=== PATIENT | female | born 1995 | race Caucasian/White ===

== ENCOUNTER 2024-04-13 14:04 | Emergency (ER) | payer BC, SELFPAY ==
--- NOTE | ~2024-04-13 | XR_ITS ---
EXAMINATION: XR FOOT 3 OR MORE VIEWS RIGHT, XR ANKLE 3 OR MORE VIEWS RIGHT HISTORY: fall COMPARISON: There are no prior studies available for comparison. FINDINGS: Six views of the right foot and ankle are submitted. Osseous mineralization is normal. There is a mildly displaced oblique fracture of the distal fibula. No additional fracture is seen. There is no dislocation. The joint spaces are preserved. There is soft tissue swelling over the lateral malleolus. XR/XR foot RT min 3V IMPRESSION: Mildly displaced oblique fracture of the distal fibula. Electronically signed by: Mehul Fernandez MD 04/13/2024 03:58 PM [facility]
--- NOTE | ~2024-04-13 | XR_ITS ---
EXAMINATION: XR FOOT 3 OR MORE VIEWS RIGHT, XR ANKLE 3 OR MORE VIEWS RIGHT HISTORY: fall COMPARISON: There are no prior studies available for comparison. FINDINGS: Six views of the right foot and ankle are submitted. Osseous mineralization is normal. There is a mildly displaced oblique fracture of the distal fibula. No additional fracture is seen. There is no dislocation. The joint spaces are preserved. There is soft tissue swelling over the lateral malleolus. XR/XR ankle RT min 3V IMPRESSION: Mildly displaced oblique fracture of the distal fibula. Electronically signed by: Mehul Fernandez MD 04/13/2024 03:58 PM [facility]
[2024-04-13 14:11] VITALS: BP 155/91; BP 156/90; PULSE 108; PULSE 115; RESP 18; TEMP 36.8; O2SAT 100; O2SAT 98; BMI 40.7
--- NOTE | 2024-04-13 14:34 | ED.GENADULT ---
HPI - General Adult General Chief complaint: Extremity Injury, Lower Stated complaint: FALL,R ANKLE PAIN/SWELLING PER EMS Time Seen by Provider: 04/13/24 16:31 Source: patient and EMS Mode of arrival: EMS Limitations: no limitations History of Present Illness ED Provider: Melida Salcedo NP HPI narrative: Patient is a 28-year-old female who presents emergency department via EMS for evaluation. She reports a mechanical trip and fall resulting in a twisting injury to the right ankle. She denies any preceding symptoms prior to the fall. There was no head strike or loss of consciousness. She denies use of anticoagulants or known coagulation disorders. She was swelling deformity to her right ankle endorsing pain diffusely throughout but primarily along the lateral malleolus Related Data Allergies Allergy/AdvReac Type Severity Reaction Status Date / Time Cephalosporins Allergy Rash Verified 04/13/24 14:16 Review of Systems Review of Systems: Yes all other systems are reviewed and are negative PMFSH Past Medical History Attestation statement: The following information was validated with the patient. Social History Social History Advance Directives: No Advance Directives Information Provided: No Do you have a plan to hurt others: No Plan Physical Exam ED Vital Signs: Vital Signs - 24 hr 04/13/24 14:11 04/13/24 18:45 Temperature 98.2 F 98.1 F Pulse Rate 115 H 105 H Respiratory Rate 18 16 Blood Pressure 155/91 H 135/79 Pulse Oximetry 100 100 Oxygen Delivery Method Room Air Room Air BMI result Body Mass Index 40.7 Appearance: Alert.?Oriented to person, place and time. No acute distress.?Normal affect. Neck: Normal inspection.? Neck supple.?? CVS: Heart sounds normal. Normal heart rate and rhythm.? Pulses normal.?? Respiratory: No respiratory distress.? Lung sounds clear to auscultation bilaterally?? Skin: Skin warm and dry.? Normal skin color.? Extremities: Swelling and slight deformity to the right ankle. 2+ DP/PT pulse bilaterally. Pain primarily to the lateral malleolus. No pain upon palpation of the proximal tibia or fibula. Moving the digits of the foot without complication Neuro: Moves all extremities spontaneously. Sensation intact bilaterally. No focal neuro deficits. Course Course Course Narrative: RME; 28 yold female presents to the ED for right ankle pain. Patient tripped and fell unto ankle. xray ordered. Vascular neuro exam intact. Motor exam limited due to pain Procedures Orthopedic Splinting/Casting Injury #1: Side: right Lower Extremity Injury Location: ankle Lower Extremity Immobilizer: stirrup splint Other Orthopedic Equipment: crutches Medical Decision Making Medical Decision Making MDM Narrative: Patient is a 28-year-old female who presents emergency department for evaluation after mechanical trip and fall with resultant pain and injury to the right ankle. Pain is 4/10. Declines interest in acetaminophen or ibuprofen at this time. Exam most concerning for likely fracture, is neurovascularly intact distally. XR was obtained revealing a distal fibular fracture. She was placed in a stirrup splint and remained neurovascularly intact distally after application. She was provided with crutches and instructed on appropriate usage. She had no associated head injury with this, no high-risk factors for shearing injury to suggest ICH that would warrant CT of the head. Discussed treatment including rest, ice, elevation, acetaminophen/ibuprofen, outpatient follow-up with orthopedics. All questions answered. Differential Diagnosis Differential Diagnoses: The differential diagnosis associated with the presentation includes (See narrative above) Independent Interpretation I performed an independent interpretation of an: Plain X-Ray (Distal fibular fracture) Radiology Impression Discussion of test interpretation with radiology: I have reviewed the radiologist's reading. Radiologist Impression: XR/XR ankle RT min 3V IMPRESSION: Mildly displaced oblique fracture of the distal fibula. Independent Historian Clinical information obtained from an independent historian. History obtained from or confirmed by: EMS External Record Review External record reviewed: Outpatient record Tests considered The following testing was considered but not selected: See narrative above Prescription Management I considered prescription management with: Pain Medication Discharge Plan Discharge Clinical Impression: Fracture of distal end of fibula Qualifiers: Encounter type: initial encounter Fracture type: closed Laterality: right Patient Disposition: Home, Self-Care Instructions: Leg Fracture (ED), Crutch Instructions (ED) Additional Instructions: You can take ibuprofen 200 mg, 3 tablets (600mg) every 6-8 hours as needed for pain, in addition to Tylenol 500 mg, 2 tablets (1,000mg) every 4-6 hours as needed for pain, but not to exceed 3 doses daily (3,000mg).? Contact orthopedic office tomorrow morning to arrange for follow-up visit. Be sure to rest, apply ice to the area for 10 15 minutes 3-4 times daily, elevate the leg above your level of your chest. Do not put weight on the leg. Use the crutches as instructed. Return with any new or worsening symptoms or concerns including increased pain, a tight/swelling sensation, inability to move the toes or discoloration to the toes. Referrals: [facility] Orthopedic Surgeons [Provider Group] (distal fibular fracture) Interventions: ED Discharge Assessment Last Done: 04/13/24 18:45 Discharge Date/Time: 04/13/24 18:47 Print Language: Martiniquais
[2024-04-13 18:45] VITALS: BP 135/79; PULSE 105; RESP 16; TEMP 36.7; O2SAT 100
== END 2024-04-13 18:47 | disposition home or self-care (01) ==
PROVIDERS: Emergency Provider Student in an Organized Health Care Education/Training Program
DX: S82.831A Other fracture of upper and lower end of right fibula, initial encounter for closed fracture (principal); W01.0XXA Fall on same level from slipping, tripping and stumbling without subsequent striking against object, initial encounter; M25.571 Pain in right ankle and joints of right foot; Y93.9 Activity, unspecified; Y92.039 Unspecified place in apartment as the place of occurrence of the external cause; Y99.9 Unspecified external cause status
CPT/HCPCS: 29515; 73610; 73630; 99282; 99284

== ENCOUNTER → 2024-04-13 15:35 | Outpatient (BNV) | payer BC, SELFPAY | PROVIDERS: Visit Provider Radiology Diagnostic Radiology | DX: M25.571 Pain in right ankle and joints of right foot (principal); W19.XXXA Unspecified fall, initial encounter | CPT/HCPCS: 73610; 73630 ==

== ENCOUNTER 2024-04-16 13:51 | Outpatient (AMB) | payer BC, SELFPAY ==
[2024-04-16 13:56] VITALS: BMI 40.7
--- NOTE | 2024-04-16 13:56 | A.OFFVIS_ITS ---
Vital Signs 04/16/24 13:56 Height 5 ft 3 in Weight 230 lb BMI 40.7 Intake Visit Reasons: FC- ED f/u RT distal end of fibula fx s/p fall Intake Note: Nasrin is a 28 year old female who presents today for an ER follow up of right fibula fx, DOI 04/13/24 ER. Patient reports she went to leave her office and was caught up causing her to fall landing with her foot behind her. She heard a crack. She presented to [facility] that same day where x-rays were taken and placed in a splint. Currently her pain level is a 2 out of 10. States at rest no pain. Her pain presents with moving around or getting up from a resting position. Finds relief Advil prn. Allergies Cephalosporins Allergy (Verified 04/16/24 14:02) Rash HPI HPI FC- ED f/u RT distal end of fibula fx s/p fall: Details: 28 yo female with rt ankle pain s./p fall she was seen in the ED, xrays significant for a fx. she wast [id number] in a splint and referred to our office for ortho eval. [facility] Social History (Updated 04/16/24 @ 14:03 by Yumiko Carreon [facility]) Are you a primary healthcare sales representative to a significant other at home: No Do you presently have visiting nurse or other home services: No Patient Tobacco Use Status: Never used Tobacco Use of substances other than those prescribed or required for medical reasons: No Have you been hit, kicked, punched, or otherwise hurt by someone within the past year? 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 Review of Systems Const All systems reviewed & are unremarkable except as noted in HPI and below Physical Exam Vital Signs: BMI result Body Mass Index 40.7 Const General: cooperative, healthy appearing, comfortable, no acute distress, well developed and alert Orientation/consciousness: patient oriented x3 HEENT Head: Yes normal to inspection, Yes normocephalic and Yes atraumatic Eyes General: appearance normal, both eyes and all related structures Neck Neck: Yes normal visual inspection and Yes no lymphadenopathy Resp Effort & Inspection: normal respiratory effort and able to speak in complete sentences Cardio Rate: regular rate Peripheral pulses: Peripheral pulses 2+ throughout GI Inspection: Yes normal to inspection Palpation (GI): Soft to palpation Skin General skin exam: no rashes or lesions noted Neuro General: patient oriented x3 Extrem Other: Right ankle normal to inspection with diffuse swelling over the medial and lateral malleolus with tenderness . pain along the syndesmosis or anterior tibia. NVI. Psych Appearance: grossly normal Mental Status: mental status grossly normal Office Procedures Casting/Splints [id number]-[id number] Leg splint application Procedure code (CPT) selection complete Results Reviewed Results Reviewed: XR ankle RT min 3V IMPRESSION: Mildly displaced oblique fracture of the distal fibula. Assessment & Plan Assessment & Plan (1) Closed right ankle fracture: Code(s): S82.891A - Other fracture of right lower leg, initial encounter for closed fracture Category: Medical Plan I discussed the case with Dr. Thurston. I discussed the extent of the injury to the patient and options available. Given the extent of the fracture pattern and high risk of further displacement, it is recommended that we surgically fix this to help with stability and restoring anatomy. I explained to the patient the procedure in detail along with the risks benefits and alternatives. Risks including but not limited to infection, wound breakdown, stiffness, on going pain, nonunion or malunion, and possible complications with hardware. She does understand all this and would like to proceed with open reduction internal fixation of the right ankle with Dr thurston. She will be booked accordingly. Medications: New [Kneeling Scooter] As directed 1 ea 0RF S82.891A - Other fracture of right lower leg, initial encounter for closed fracture Coding Level of Care Code New Pt Level 4 (83839) Complex EM visit Add On G2211 Diagnoses Closed right ankle fracture S82.891A CPT Codes Splint - CPT: 56213-Davtj Leg splint application ([id number])
== END 2024-04-16 15:41 | disposition home or self-care (01) ==
PROVIDERS: Visit Provider Physician Assistant
DX: S82.891A Other fracture of right lower leg, initial encounter for closed fracture (principal)
CPT/HCPCS: 27786; 99204

== ENCOUNTER → 2024-04-16 13:51 | Outpatient (BNVA) | payer BC, SELFPAY | PROVIDERS: Visit Provider Physician Assistant | DX: S82.891A Other fracture of right lower leg, initial encounter for closed fracture (principal) | CPT/HCPCS: 27786 ==

== ENCOUNTER 2024-04-20 13:44 | Day surgery (SDC) | payer BC, SELFPAY ==
[2024-04-20] VITALS (7 sets, daily range): BP systolic 128–147; BP diastolic 67–107; PULSE 93–106; RESP 16–18; TEMP 36.4–36.7; O2SAT 96–100; BMI 41.6
--- NOTE | ~2024-04-20 | FL_ITS ---
EXAMINATION: FL GUIDANCE ONLY HISTORY: right ankle ORIF COMPARISON: Correlation is made with the prior examination of the right ankle dated 04/13/2024. TECHNIQUE: Fluoroscopy time: 0.3 minutes. Cumulative Dose: 0.477 mGy. DAP: 0.121 uGy-m2 (microgray-meter squared). Images: 10. FINDINGS: Images demonstrate internal fixation of the previously seen fracture of the distal fibula with a sideplate and multiple orthopedic screws. A button is seen along the medial aspect of the distal tibia. FL/FL guidance in OR IMPRESSION: Fluoroscopy during procedure. Please see procedure report for additional information. Electronically signed by: Mehul Fernandez MD 04/23/2024 02:24 PM [facility]
[2024-04-20 15:18] LABS: UPreg QC Valid YES; Urine Pregnancy NEGATIVE (NEGATIVE)
--- NOTE | 2024-04-20 16:19 | MHC.SHP ---
Pre-Procedural Eval Section A - 24 Hr Update-Section A only Date of Service: 04/20/24 The patient is an INPATIENT: No Changes since office visit: No Cold of Flu in the past 2 weeks, No New Medical Problems, No Changes in Medication and No Patient answered all questions The patient has been examined within 24 hours of the surgical procedure. The History & Physical has been completed within 30 days and I have reviewed it.: Yes Section B - Complete if H&P > 30 days Chief Complaint: Pathological fracture, unspecified ankle, initial Allergies: Allergies Allergy/AdvReac Type Severity Reaction Status Date / Time Cephalosporins Allergy Rash Verified 04/16/24 14:02 Plan I have reviewed the history and physical and performed a pertinent physical examination on my patient. No changes have occurred unless specified. Time Spent With Patient Time: Total time managing care of this patient today ____ minutes.
--- NOTE | 2024-04-20 16:39 | P.CONAN_ITS ---
HPI - Anesthesia Eval Consult details Narrative: 28 yo female patient for ORIF Right ankle fracture PMFSH Active Problems Active Problems: All Active Problems Closed right ankle fracture (Acute) ADHD Increased BMI 41.6 Snores but never diagnosed with ANA Emotional- crying pre-op Family History Family history of problems with anesthesia: No Surgical History History of Problems with Anesthesia: No Social History Social History Are you a primary managed care coordinator to a significant other at home: No Do you presently have visiting nurse or other home services: No Patient Tobacco Use Status: Never used Tobacco Use of substances other than those prescribed or required for medical reasons: No Have you been hit, kicked, punched, or otherwise hurt by someone within the past year? 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 Meds Allergies Allergy/AdvReac Type Severity Reaction Status Date / Time Cephalosporins Allergy Rash Verified 04/16/24 14:02 Home Medications ?Medication ?Instructions ?Recorded ?Confirmed ?Last Taken ?Type dextroamphetamine-amphetamine ER 1 cap PO DAILY 04/16/24 Unknown History 30 mg 24hr capsule,extend release Exam Height,Weight and Vital Signs: Height 5 ft 3 in Weight 106.594 kg Last Vital Signs Temp 98.1 F 04/20/24 15:08 Pulse 102 H 04/20/24 15:08 Resp 16 04/20/24 15:08 BP 141/78 H 04/20/24 15:08 Pulse Ox 100 04/20/24 15:08 O2 Del Method Room Air 04/20/24 15:08 Pertinent Lab Results Pertinent Lab Results: Laboratory Tests 04/20/24 14:57 Urine Test NEGATIVE Airway Mallampati Class: II TM Dist: >3cm Neck ROM: Full Loose/Missing/Broken Teeth: Yes ([place] teeth extracted. Denies broken or loose teeth) Heart: RRR Lungs: CTAB Assessment and Plan Assessment Anesthesia Assessment: Anesthesia Plan Discussed and Chart Reviewed Final Anesthetic Review Family History of Problems with Anesthesia: No History of Problems with Anesthesia: No NPO: Yes ASA Class: II and Emergency Final Preanesthetic Review: No Changes in Pt Med Stat, Meds/Allgs Chart Reviewed, Consent Obtained/Reviewed and Anes Risks/Benef Reviewed Patient Risk: Intermediate Procedure Risk: Low Assessment/Block/Sedation in SS: Assess/Block/Sedation-SS Anesthetic Plan Anesthetic Plan: GA Disposition: Standard PACU
--- NOTE | 2024-04-20 18:10 | PM.OP ---
Brief Operative Note Date of Service: 04/20/24 Pre-op diagnosis: Right ankle fracture Post-op diagnosis: same Procedure: ORIF lateral malleolus, right ORIF syndesmosis, right Implants: [place] Pangea 5 hole direct lateral plate and one sydesmosis cinch Surgeon: Hua Thurston MD Anesthesia: GLMA and local Was an Board Of Education Secretary used for this Procedure?: Yes Board Of Education Secretary: Lavonne Watson Estimated blood loss (mL): 50 IV fluids (mL): 850 Pathology: none sent Condition: stable Disposition: PACU
[2024-04-20] MEDS: fentaNYL citrate/PF 100 MCG/2 ML VIAL 25 MCG IVPUSH ×2 (18:15→18:20)
[2024-04-20] MEDS: HYDROmorphone HCl 0.5 MG/0.5 ML SYRINGE 0.25 MG IVPUSH ×2 (18:25→18:30)
--- NOTE | 2024-04-26 15:43 | W.PM.OPN ---
Operative Note Operative Note Date of Service: 04/20/24 Narrative: Date of Service: 04/20/24 Pre-op diagnosis: Right ankle fracture Post-op diagnosis: same Procedure: ORIF lateral malleolus, right ORIF syndesmosis, right Implants: [place] Pangea 5 hole direct lateral plate and one sydesmosis cinch Surgeon: Hua Thurston MD Anesthesia: GLMA and local Was an Casting Wheel Operator Helper used for this Procedure?: Yes Casting Wheel Operator Helper: Lavonne Watson Estimated blood loss (mL): 50 IV fluids (mL): 850 Pathology: none sent Condition: stable Disposition: PACU Procedure in detail: Patient was brought to the operating room and placed supine on the operative table. All bony prominences were well padded and a time-out was called to identify proper site proper procedure proper surgeon. IV antibiotics per weight were administered. I began by exsanguinating limb is slightly tourniquet to 300 mm Hg. I then made a standard posterolateral incision over the fibula. Full-thickness flaps were taken down to the fibular shaft and distal fibula. The fracture was identified and cleaned with a combination of curette, rongeur and irrigation. A lobster claw was used to provisionally reduce the fracture and a 6 hole distal fibular locking plate was applied using standard AO technique. Biplanar fluoroscopy was used to confirm hardware position and fracture reduction. Once I was satisfied that both of these were acceptable I irrigated copiously and turned my attention to the medial side. This syndesmosis was tested using external rotation test and was found to be stable. Therefore all instrumentation was removed and copious irrigation was performed. Absorbable suture and anu were used for closure and the patient was placed into sterile dressings and a well-padded posterior splint. Tourniquet was let down and the patient was extubated brought to recovery room in stable condition there were no known complications.
== END 2024-04-20 18:37 | disposition home or self-care (01) ==
LOC: HO.SSS 13:45
PROVIDERS: Anesthesiology; Visit Provider Orthopaedic Surgery
PROC: (CPT 27792; principal; 2024-04-20 16:10)
DX: S82.61XA Displaced fracture of lateral malleolus of right fibula, initial encounter for closed fracture (principal); W01.0XXA Fall on same level from slipping, tripping and stumbling without subsequent striking against object, initial encounter; Y93.9 Activity, unspecified; Y92.9 Unspecified place or not applicable; Y99.9 Unspecified external cause status; Z88.8 Allergy status to other drugs, medicaments and biological substances
CPT/HCPCS: 27792; 81025; C1713; J0736; J1100; J1171; J2003; J2250; J2405; J2704; J2795; J3010

== ENCOUNTER → 2024-04-20 13:44 | Outpatient (BNV) | payer BC, SELFPAY | PROVIDERS: Visit Provider Orthopaedic Surgery | DX: S82.891A Other fracture of right lower leg, initial encounter for closed fracture (principal) | CPT/HCPCS: 27792 ==

== ENCOUNTER 2024-04-28 13:03 | Outpatient (AMB) | payer BC, SELFPAY ==
--- NOTE | 2024-04-28 13:11 | MHC.OFFVIS ---
Intake Visit Reasons: PO-Rt Ankle ORIF 04/20/24 NE Intake Note: Nasrin is a 28 year old female who presents today for a post operative RT ankle. Patient reports her pain has improved since her sugery. Allergies Cephalosporins Allergy (Verified 04/28/24 13:27) Rash HPI HPI PO-Rt Ankle ORIF 04/20/24 NE: Details: 28-year-old female returns to the office today status post ORIF of the right ankle 04/20/[address] Thurston. Cast removed today she is doing well her pain is well managed. 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 Minimal swelling. No drainage. Sensation intact. Pulses present. Office Procedures Casting/Splints 62134-Nnyvs Leg Cast Application Procedure code (CPT) selection complete Assessment & Plan Assessment & Plan (1) Closed right ankle fracture: Code(s): S82.891A - Other fracture of right lower leg, initial encounter for closed fracture Category: Medical Plan: [place] will remain intact for another week. She will return at that time for cast off with x-rays of the right ankle. She will continue weight-bearing for a total of 6 weeks postop. She did have an upcoming trip to [place] however I recommend that she postpone flying for up to 6 weeks postop. If she does decide to drive she should get out of the car about every hour to ambulate and elevate the leg. She will see me back as discussed sooner if needed. Coding Level of Care Code Global (55250) Diagnoses Closed right ankle fracture S82.891A CPT Codes Casting - CPT: 07970-Hbwzh Leg Cast Application ([id number])
== END 2024-04-28 14:07 | disposition home or self-care (01) ==
PROVIDERS: Visit Provider Physician Assistant
DX: S82.891A Other fracture of right lower leg, initial encounter for closed fracture (principal)
CPT/HCPCS: 29405; 99024

== ENCOUNTER → 2024-04-28 13:03 | Outpatient (BNVA) | payer BC, SELFPAY | PROVIDERS: Visit Provider Physician Assistant | DX: S82.891D Other fracture of right lower leg, subsequent encounter for closed fracture with routine healing (principal) | CPT/HCPCS: 29405 ==

== ENCOUNTER 2024-05-05 07:22 | Outpatient (REF) | payer BC, SELFPAY ==
--- NOTE | ~2024-05-05 | XR_ITS ---
CLINICAL HISTORY: M25.571 - Pain in right ankle and joints of right foot 3 view right ankle Comparison: None Findings: Status post open reduction internal fixation of the distal fibula with transsyndesmotic suture button. No acute hardware complications. Normal alignment. IMPRESSION: 1. No acute findings, status post ORIF distal fibula with transsyndesmotic suture button. This document has been electronically signed by: Sienna Win MD on 05/06/2024 02:15:40
== END 2024-05-05 07:23 | disposition home or self-care (01) ==
LOC: HO.HOSX 07:22
PROVIDERS: Visit Provider Physician Assistant
DX: M25.571 Pain in right ankle and joints of right foot (principal); S82.891A Other fracture of right lower leg, initial encounter for closed fracture; X58.XXXA Exposure to other specified factors, initial encounter; Y93.9 Activity, unspecified; Y92.9 Unspecified place or not applicable; Y99.9 Unspecified external cause status; Z48.02 Encounter for removal of sutures
CPT/HCPCS: 29405; 73610

== ENCOUNTER 2024-05-05 08:49 | Outpatient (AMB) | payer BC, SELFPAY ==
--- NOTE | 2024-05-05 09:16 | A.OFFVIS_ITS ---
Intake Visit Reasons: PO-Rt Ankle ORIF 04/20/24 NE Intake Note: Nasrin is a 28 year old female who presents today for a post operative RT ankle ORIF, DOS 04/20/24 NE. Patient reports she felt good in the cast. Having some pain around the ankle and she is experiencing nerve pain. Allergies Cephalosporins Allergy (Verified 05/05/24 09:20) Rash Medication List - Last Reconciled 05/05/24 by Lavonne Watson PA-C acetaminophen 650 mg (2 x 325 mg) PO Q6H PRN 30 days dextroamphetamine-amphetamine 30 mg ER 1 cap PO DAILY [Kneeling Scooter As directed] ondansetron HCl 4 mg PO Q6H PRN 7 days HPI HPI PO-Rt Ankle ORIF 04/20/24 NE: Details: 28-year-old female returns to the office today status post ORIF right ankle 04/20/[address] Thurston. Cast removed today she remains nonweightbearing she is doing well overall no concerns today. 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 Minimal swelling around the foot and ankle. Incision is clean dry and intact. Pulses are present neurovascularly intact Office Procedures Casting/Splints 36508-Ypots Leg Cast Application Procedure code (CPT) selection complete Results Reviewed Results Reviewed: X-rays of the right ankle obtained in the office today show orthopedic hardware intact stable fracture pattern. Assessment & Plan Assessment & Plan (1) Closed right ankle fracture: Code(s): S82.891A - Other fracture of right lower leg, initial encounter for closed fracture Category: Medical Plan: Daniella removed today Steri-Strips applied. She was placed in a short-leg cast she will continue nonweightbearing for the next 4 weeks. I educated her on elevation. She will see me back in 4 weeks with cast off and new x-rays and tra nsition to a boot to begin weight-bearing as tolerated in physical therapy. Orders: Orders XR ankle RT min 3V Today M25.571 - Pain in right ankle and joints of right foot Coding Level of Care Code Global (04498) Diagnoses Closed right ankle fracture S82.891A CPT Codes Casting - CPT: 88341-Ssndg Leg Cast Application ([id number])
== END 2024-05-05 09:58 | disposition home or self-care (01) ==
PROVIDERS: Visit Provider Physician Assistant
DX: S82.891A Other fracture of right lower leg, initial encounter for closed fracture (principal)
CPT/HCPCS: 29405; 99024

== ENCOUNTER → 2024-05-05 08:55 | Outpatient (BNV) | payer BC, SELFPAY | PROVIDERS: Visit Provider Radiology Diagnostic Radiology | DX: S82.891A Other fracture of right lower leg, initial encounter for closed fracture (principal) | CPT/HCPCS: 73610 ==

== ENCOUNTER 2024-06-02 08:16 | Outpatient (REF) | payer BC, SELFPAY ==
--- NOTE | ~2024-06-02 | XR_ITS ---
EXAMINATION: XR ANKLE 3 OR MORE VIEWS RIGHT HISTORY: M25.571 - Pain in right ankle and joints of right foot COMPARISON: Comparison is made with the prior examination dated 05/05/2024. FINDINGS: Three views of the right ankle are submitted. Osseous mineralization is normal. The patient is again noted to be status post internal fixation of a fracture of the distal fibula with a sideplate and multiple orthopedic screws. A button is again noted along the medial aspect of the tibial metaphysis. The fibular fracture line remains faintly visible. The joint spaces are preserved. The soft tissues are unremarkable. XR/XR ankle RT min 3V IMPRESSION: Internal fixation of a fracture of the distal fibula without significant change. Electronically signed by: Mehul Fernandez MD 06/04/2024 12:40 PM [facility]
== END 2024-06-02 08:17 | disposition home or self-care (01) ==
LOC: HO.HOSX 08:16
PROVIDERS: Visit Provider Physician Assistant
DX: M25.571 Pain in right ankle and joints of right foot (principal)
CPT/HCPCS: 73610

== ENCOUNTER 2024-06-02 09:53 | Outpatient (AMB) | payer BC, SELFPAY ==
--- NOTE | 2024-06-02 10:25 | A.OFFVIS_ITS ---
Intake Visit Reasons: PO-Rt Ankle ORIF 04/20/24 NE Intake Note: Nasrin is a 29 year old female who presents today for a post operative right ankle ORIF, DOS 04/20/24 NE. Cast off and x-rays updated. Patient reports she is doing well, she denies pain stating more discomfort than pain. Allergies Cephalosporins Allergy (Verified 06/02/24 10:27) Rash Medication List - Last Reconciled 06/02/24 by Lavonne Watson PA-C dextroamphetamine-amphetamine 30 mg ER 1 cap PO DAILY [Kneeling Scooter As directed] HPI HPI PO-Rt Ankle ORIF 04/20/24 NE: Details: 29-year-old female returns to the office today 6 weeks status post ORIF of the right ankle on 04/20/[address] Thurston. She is doing well overall she has no concerns. Mild discomfort noted. 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 No surrounding erythema or drainage. No swelling. She has good sensation and pulses are present. Results Reviewed Results Reviewed: X-rays of the right ankle obtained in the office today and reviewed by me show intact orthopedic hardware with interval healing. Ankle mortise intact. Assessment & Plan Assessment & Plan (1) Closed right ankle fracture: Code(s): S82.891A - Other fracture of right lower leg, initial encounter for closed fracture Category: Medical Qualifiers: Encounter type: subsequent encounter Fracture healing: with routine healing Qualified Code(s): S82.891D - Other fracture of right lower leg, subsequent encounter for closed fracture with routine healing Plan: Cast was discontinued and she was transitioned to a tall boot weightbearing as tolerated. She should wear the boot at all times while ambulating. She can remove for hygiene resting and physical therapy exercises. I did educate her that occasional and intermittent swelling is expected with increased activity. She will begin physical therapy for range of motion gentle strengthening proprioceptive training. I would like to see her back in 6 weeks with new x- rays, sooner if needed. Orders: Orders XR ankle RT min 3V Today M25.571 - Pain in right ankle and joints of right foot PT Evaluation and Treatment Today S82.891A - Other fracture of right lower leg, initial encounter for closed fracture Coding Level of Care Code Global (60445) Diagnoses Closed fracture of right ankle with routine healing, subsequent encounter S82.891D Encounter type: subsequent encounter Fracture healing: with routine healing
== END 2024-06-02 10:58 | disposition home or self-care (01) ==
PROVIDERS: Visit Provider Physician Assistant
DX: S82.891D Other fracture of right lower leg, subsequent encounter for closed fracture with routine healing (principal)
CPT/HCPCS: 99024

== ENCOUNTER → 2024-06-02 09:58 | Outpatient (BNV) | payer BC, SELFPAY | PROVIDERS: Visit Provider Radiology Diagnostic Radiology | DX: M25.571 Pain in right ankle and joints of right foot (principal) | CPT/HCPCS: 73610 ==

== ENCOUNTER 2024-07-15 08:42 | Outpatient (REF) | payer BC, SELFPAY ==
--- NOTE | ~2024-07-15 | XR_ITS ---
EXAMINATION: XR ANKLE 3 OR MORE VIEWS RIGHT HISTORY: M25.571 - Pain in right ankle and joints of right foot COMPARISON: Comparison is made with the prior examination dated 06/02/2024. FINDINGS: Three views of the right ankle are submitted. The bones are osteopenic. The patient is again noted to be status post internal fixation of a fracture of the distal fibula with a sideplate and multiple orthopedic screws. The fracture line is less visible, consistent with healing. The joint spaces are preserved. There is a tiny plantar calcaneal spur. The soft tissues are unremarkable. XR/XR ankle RT min 3V IMPRESSION: Healing internally fixed fracture of the distal fibula. Electronically signed by: Mehul Fernandez MD 07/16/2024 07:42 AM EDT
== END 2024-07-15 08:43 | disposition home or self-care (01) ==
LOC: HO.HOSX 08:42
PROVIDERS: Visit Provider Physician Assistant
DX: M25.571 Pain in right ankle and joints of right foot (principal)
CPT/HCPCS: 73610

== ENCOUNTER 2024-07-15 13:57 | Outpatient (AMB) | payer BC, SELFPAY ==
--- NOTE | 2024-07-15 14:22 | MHC.OFFVIS ---
Intake Visit Reasons: PO 6wk fu ORIF rt ankle 04/20/24-w xrays Intake Note: Nasrin is a 29 year old female who presents today for a post operative visit s/p right ankle ORIF, DOS 04/20/24. X-rays updated. Patient reports she is doing well, states she continues to attend PT and has been weaned out of walking boot. Allergies Cephalosporins Allergy (Verified 07/15/24 14:23) Rash Medication List - Last Reconciled 07/16/24 by Lavonne Watson PA-C dextroamphetamine-amphetamine 30 mg ER 1 cap PO DAILY [Kneeling Scooter As directed] HPI HPI PO 6wk fu ORIF rt ankle 04/20/24-w xrays: Details: 29-year-old female returns to the office today 3 months status post ORIF right ankle on 04/20/[address] Thurston. She has been working with physical therapy and continues to do well with her motion but continues to have limitations with balance. 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 No surrounding erythema or drainage. No swelling. She has full range of motion and mild weakness with inversion and eversion. Weakness with plantar flexion. She has good sensation and pulses are present. Results Reviewed Results Reviewed: X-rays of the right ankle obtained in the office today and reviewed by me show intact orthopedic hardware with interval healing. Ankle mortise intact. Assessment & Plan Assessment & Plan (1) Closed right ankle fracture: Code(s): S82.891A - Other fracture of right lower leg, initial encounter for closed fracture Category: Medical Qualifiers: Encounter type: subsequent encounter Fracture healing: with routine healing Qualified Code(s): S82.891D - Other fracture of right lower leg, subsequent encounter for closed fracture with routine healing Plan: She was transitioned to a lace-up ankle brace. She will use this with activities for the next 6-8 weeks until she has full strength. She can increase activities as tolerated and if symptoms arise she will contact our office otherwise follow up as needed. Orders: Orders XR ankle RT min 3V 07/15/24 M25.571 - Pain in right ankle and joints of right foot Coding Level of Care Code Global (22281) Diagnoses Closed fracture of right ankle with routine healing, subsequent encounter S82.891D Encounter type: subsequent encounter Fracture healing: with routine healing
== END 2024-07-15 15:58 | disposition home or self-care (01) ==
LOC: HO.HOS 13:58
PROVIDERS: Visit Provider Physician Assistant
DX: S82.891D Other fracture of right lower leg, subsequent encounter for closed fracture with routine healing (principal)
CPT/HCPCS: 99024

== ENCOUNTER → 2024-07-15 14:03 | Outpatient (BNV) | payer BC, SELFPAY | PROVIDERS: Visit Provider Radiology Diagnostic Radiology | DX: S82.892D Other fracture of left lower leg, subsequent encounter for closed fracture with routine healing (principal) | CPT/HCPCS: 73610 ==

== ENCOUNTER 2025-01-04 07:05 | Outpatient (RCR) | payer BC, SELFPAY ==
--- NOTE | 2025-02-04 15:42 | MHC.PT.DC ---
[facility] [place] Office [place] Office [place] Office [address] [place] Gl[place] [address] [phone] F: [phone] F: [phone] F: [phone] F: [phone] Physical Therapy Discharge Report Diagnosis: RIGHT ANKLE ORIF BY NE 04/20/24 (JOSE) Date of Surgery: 04/20/24 Date of Evaluation: 06/22/24 Date of Discharge: 01/05/25 Treatments to Date: 26 Cancellations to Date: 0 No Shows to Date: 0 Discharge Status: Achieved Goals Improved Function Independent with HEP Discharge Summary: ASHLEY PROGRESSED WELL IN THERAPY AND HAS RETURN TO THE MAJORITY OF HER REGULAR ACTIVITIES WITH THE EXCEPTION OF RUNNING. SHE IS ABLE TO PERFORM LIGHT JOG/WALK WITHOUT INCREASING SYMPTOMS AT THIS TIME. SHE HAS A COMPREHENSIVE HEP WHICH SHE WILL CONTINUE TO PERFORM FOR SELF MANAGEMENT OF SYMPTOMS AND CONTACT OUR OFFICE IF ANY CONCERNS OR QUESTIONS ARISE. DC TO HEP Electronically signed by: KARLA TYLER PT DPT Please sign and return to therapist. Thank you for your referral.
== END 2025-02-04 15:42 | disposition home or self-care (01) ==
LOC: HO.PT 07:05
PROVIDERS: Visit Provider Physician Assistant
DX: S82.891D Other fracture of right lower leg, subsequent encounter for closed fracture with routine healing (principal); W01.0XXD Fall on same level from slipping, tripping and stumbling without subsequent striking against object, subsequent encounter
CPT/HCPCS: 97110; 97116; 97140; 97161; 97530